=== PATIENT | male | born 1975 | race Caucasian/White ===

== ENCOUNTER 2016-05-04 10:13 | Emergency (ER) | payer SELFPAY ==
[~2016-05-04] VITALS: Ht 182.9 cm; Wt 100.0 kg
[~2016-05-04 10:13] MED LIST: BACT800T5 PO; CEPH-460 PO; METH40TA PO
[2016-05-04 10:15] VITALS: BP 159/87; PULSE 92; RESP 18; TEMP 98.2; O2SAT 97
[2016-05-04 10:26] VITALS: BP 181/94; PULSE 80; RESP 20; TEMP 98.5; O2SAT 99
[2016-05-04] MEDS ORDERED: METH40TA PO (10:26)
[2016-05-04] MEDS ORDERED: METH10TA PO (10:26)
[2016-05-04] MEDS ORDERED: METH5TAB PO (10:26)
[2016-05-04 10:36] VITALS: O2SAT 96
--- NOTE | 2016-05-04 10:37 | PD ---
HPI Chief Complaint: Cardiac Complaint Time Seen by Provider: 10:24 Travel History International Travel<30 days: No Contact w/Intl Traveler<30days: No Traveled to known affect area: No History of Present Illness HPI This patient complains of chest pain. He has intermittent spells for the last one week. Severity symptoms is moderate. He describes an aching sharp pain in the low center sternum. Symptoms are nonexertional. They resolve on their own within 5 minutes. No alleviating factors. PFSH Past Medical History Arthritis: Yes (BACK) Bipolar Disorder: Yes Depression: Yes Cancer: No Cardiac Catheterization: Yes (05/2012 AT [facility] ) Cardiovascular Problems: Yes (cath with no stents) High Cholesterol: Yes Diabetes: No Diminished Hearing: No Diverticulitis: Yes Endocrine: No Gastrointestinal Disorders: Yes (ACID REFLUX, BLEEDING ULCER, GALLSTONES) GERD: Yes Genitourinary: No Headaches: Yes Hypertension: Yes Immune Disorder: No Implanted Vascular Access Dvce: No Musculoskeletal: Yes (BACK L1-2 RUPTURE, BULGING DISC, SCOLIOSIS, 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) Neurologic: Yes Psychiatric: Yes (BIPOLAR) Reproductive: No Respiratory: No Immunizations Current: Yes Migraines: Yes Myocardial Infarction: Yes Renal Failure: Yes Past Surgical History Other Surgery: No Social History Alcohol Use: No Tobacco Use: No Substance Use: No (HX OF PAST USE OF MARIJUANA AND COCAINE IN PAST) Allergies-Medications (Allergen,Severity, Reaction): Coded Allergies: Amlodipine (Verified Allergy, Severe, Swelling, 05/04/16) Naproxen (Verified Allergy, Intermediate, Hives, 05/04/16) Lisinopril (Verified Adverse Reaction, Severe, KIDNEY FAILURE, 05/04/16) kidney failure Toradol (Verified Adverse Reaction, Severe, STOMACH CRAMPS, 05/04/16) Reported Meds & Prescriptions Reported Meds & Active Scripts Active Bactrim DS (Sulfamethoxazole-Trimethoprim) 800-160 Mg Tab 1 Tab PO BID 10 Days Reported Methadone (Methadone HCl) 40 Mg Tab 40 Mg PO DAILY Methadone (Methadone HCl) 10 Mg Tab 30 Mg PO DAILY Methadone (Methadone HCl) 5 Mg Tab 5 Mg PO DAILY Review of Systems General / Constitutional: No: Fever Eyes: No: Visual changes HENT: No: Headaches Cardiovascular: Positive: Chest Pain or Discomfort Respiratory: No: Shortness of Breath Gastrointestinal: No: Abdominal Pain Genitourinary: No: Dysuria Musculoskeletal: No: Pain Skin: No Rash Neurologic: No: Weakness Psychiatric: No: Depression Endocrine: No: Polydipsia Hematologic/Lymphatic: No: Easy Bruising Physical Exam Narrative GENERAL: Well-nourished, well-developed patient in no apparent distress. SKIN: Warm and dry. HEAD: Atraumatic. Normocephalic. EYES: Pupils equal and round. No scleral icterus. No injection or drainage. ENT: No nasal bleeding or discharge. Mucous membranes pink and moist. NECK: Trachea midline. No JVD. CARDIOVASCULAR: Regular rate and rhythm. No murmur appreciated. RESPIRATORY: No accessory muscle use. Clear to auscultation. Breath sounds equal bilaterally. GASTROINTESTINAL: Abdomen soft, non-tender, nondistended. Hepatic and splenic margins not palpable. MUSCULOSKELETAL: No obvious deformities. No clubbing. No cyanosis. No edema. Is readily reproducible chest wall tenderness in the region of the xiphoid process. Whenever I palpate he instantly reoccurs his chest pain. NEUROLOGICAL: Awake and alert. No obvious cranial nerve deficits. Motor grossly within normal limits. Normal speech. PSYCHIATRIC: Appropriate mood and affect; insight and judgment normal. Data Data Last Documented VS Vital Signs Date Time Temp Pulse Resp B/P Pulse Ox O2 Delivery O2 Flow Rate FiO2 05/04/16 11:14 56 18 121/60 94 Room Air 05/04/16 10:26 98.5 Orders Electrocardiogram (05/04/16 ) Basic Metabolic Panel (Bmp) (05/04/16 10:32) Ckmb (Isoenzyme) Profile (05/04/16 10:32) Complete Blood Count With Diff (05/04/16 10:32) Troponin I (05/04/16 10:32) Ecg Monitoring (05/04/16 10:32) Iv Access Insert/Monitor (05/04/16 10:32) Oximetry (05/04/16 10:32) Sodium Chloride 0.9% Flush (Ns Flush) (05/04/16 10:45) Clonidine (Catapres) (05/04/16 10:45) CKMB (05/04/16 10:40) CKMB% (05/04/16 10:40) Labs Laboratory Tests Test 05/04/16 10:40 White Blood Count 13.2 TH/MM3 Red Blood Count 5.22 MIL/MM3 Hemoglobin 15.8 GM/DL Hematocrit 45.6 % Mean Corpuscular Volume 87.4 FL Mean Corpuscular Hemoglobin 30.3 PG Mean Corpuscular Hemoglobin 34.7 % Concent Red Cell Distribution Width 13.5 % Platelet Count 236 TH/MM3 Mean Platelet Volume 8.8 FL Neutrophils (%) (Auto) 47.6 % Lymphocytes (%) (Auto) 42.5 % Monocytes (%) (Auto) 7.7 % Eosinophils (%) (Auto) 1.8 % Basophils (%) (Auto) 0.4 % Neutrophils # (Auto) 6.3 TH/MM3 Lymphocytes # (Auto) 5.6 TH/MM3 Monocytes # (Auto) 1.0 TH/MM3 Eosinophils # (Auto) 0.2 TH/MM3 Basophils # (Auto) 0.0 TH/MM3 CBC Comment AUTO DIFF Sodium Level 139 MEQ/L Potassium Level 4.0 MEQ/L Chloride Level 104 MEQ/L Carbon Dioxide Level 28.1 MEQ/L Anion Gap 7 MEQ/L Blood Urea Nitrogen 17 MG/DL Creatinine 1.01 MG/DL Estimat Glomerular Filtration 82 ML/MIN Rate Random Glucose 101 MG/DL Calcium Level 9.3 MG/DL Total Creatine Kinase 114 U/L Creatine Kinase MB 0.8 NG/ML Troponin I 0.04 NG/ML [facility] Medical Decision Making Medical Screen Exam Complete: Yes Emergency Medical Condition: Yes Medical Record Reviewed: Yes Differential Diagnosis Differential diagnosis includes IA, angina, pericarditis, pleurisy, GERD, anxiety. Narrative Course I have reviewed the patient's electronic medical record. Patient was seen here 2016 for chest pain when he left AMA after 2 negative troponins IV placed I reviewed the EKG which shows sinus rhythm but no ST elevation or ectopy Extended cardiac monitoring shows sinus rhythm without ectopy CBC is normal Metabolic profile is normal CK is normal Troponin is normal I gave him a dose of clonidine for accelerated hypertension of 186/94 Blood pressure is now low at 105 but I believe will gradually worked its way up as this clonidine metabolizes His pain is clearly chest wall in origin and not cardiac and he does not require inpatient evaluation for this pain. He does require outpatient follow-up and I advised him to be diligent about that Recommended he check and record his blood pressure daily Diagnosis Primary Impression: Musculoskeletal chest pain Additional Instructions: The patient was advised to follow up with their physician and return if they worsen. Med/Other Pt SpecificInfo: Other Disposition: 01 DISCHARGE HOME Condition: Stable Rey Stewart MD May 04, 2016 10:37
[2016-05-04] MEDS ORDERED: cloNIDine HCL 0.1 MG TAB PO ONE (10:45)
[2016-05-04] MEDS ORDERED: SODIUM CHLORIDE 0.9% FLUSH 5 ML FLUSH IVF PRN (10:45)
[2016-05-04 11:08] LABS: ANION GAP 7 MEQ/L (5-15); BICARBONATE 28.1 MEQ/L (21.0-32.0); BLOOD UREA NITROGEN 17 MG/DL (7-18); CHLORIDE 104 MEQ/L (98-107); GLOMERULAR FILTRATION RATE 82 ML/MIN (>89); SODIUM (NA) 139 MEQ/L (136-145)
[2016-05-04 11:11] LABS: AUTOMATED NEUTROPHIL # 6.3 TH/MM3 (1.8-7.7); BASOPHIL % 0.4 % (0.0-2.0); CREATINE KINASE 114 U/L (39-308); EOSINOPHIL # 0.2 TH/MM3 (0-0.4); EOSINOPHIL % 1.8 % (0.0-4.0); HEMATOCRIT 45.6 % (39.0-51.0); LYMPH % 42.5 % (9.0-44.0); LYMPHOCYTE # 5.6 TH/MM3 (1.0-4.8); MEAN CELL VOLUME 87.4 FL (80.0-100.0); MEAN CORPUSCULAR HEMOGLOBIN 30.3 PG (27.0-34.0); MEAN CORPUSCULAR HGB CONC 34.7 % (32.0-36.0); MONO % 7.7 % (0.0-8.0); NEUT % 47.6 % (16.0-70.0); PLATELET COUNT 236 TH/MM3 (150-450); RED BLOOD COUNT 5.22 MIL/MM3 (4.50-5.90); RED CELL DISTRIBUTION WIDTH 13.5 % (11.6-17.2); WHITE BLOOD COUNT 13.2 TH/MM3 (4.0-11.0)
[2016-05-04 11:12] LABS: HEMO FLAGS AUTO DIFF
[2016-05-04 11:14] VITALS: BP 121/60; PULSE 56; RESP 18; O2SAT 94
[2016-05-04 11:24] LABS: CKMB 0.8 NG/ML (0.5-3.6)
[2016-05-04 12:13] VITALS: BP 105/58; PULSE 52; RESP 18; O2SAT 94
[2016-05-04 12:33] LABS: BANDS 2 % (0-6); EOSINOPHILS 4 % (0-4); METAMYELOCYTES 1 % (0-1); NEUTROPHIL # MANUAL DIFF 6.3 TH/MM3 (1.8-7.7); PLATELET ESTIMATE SMEAR NORMAL (NORMAL); PLATELET MORPHOLOGY NORMAL (NORMAL); POLYS (SEG NEUTROPHILS) 45 % (16-70); SCAN/DIFF FINAL DIFF MANUAL; WBC DIFF SAMPLE 100
--- NOTE | 2016-05-04 13:25 | EKG ---
Date Performed: 05/04/2016 Time Performed: 10:32:02 PTAGE: 41 years EKG: Sinus rhythm NORMAL ECG PREVIOUS TRACING : 04/20/2015 15.54 No significant change from previous tracing noted. DOCTOR: Ayden Griffin Interpretating Date/Time 05/04/2016 13:24:51
== END 2016-05-04 12:50 | disposition home or self-care (01) ==
LOC: NEPC 10:13
DX: R07.9 Chest pain, unspecified (principal); I10 Essential (primary) hypertension
CPT/HCPCS: 80048; 82550; 82552; 84484; 85007; 85027; 93005

== ENCOUNTER 2016-08-29 18:26 | Observation (INO) | payer SELFPAY ==
[~2016-08-29] VITALS: Ht 182.9 cm; Wt 98.0 kg
[~2016-08-29 18:26] MED LIST changes: -CEPH-460 PO; +METH10TA PO; +METH5TAB PO
[2016-08-29 18:28] VITALS: BP 205/98; PULSE 74; RESP 20; TEMP 98.2; O2SAT 100
[2016-08-29] MEDS ORDERED: METH40TA PO (20:23)
[2016-08-29] MEDS ORDERED: SODIUM CHLOR 0.9% 1000 ML INJ 1,000 ML IV SCH (20:26)
[2016-08-29] MEDS ORDERED: ASPIRIN 81 MG CHEW TAB PO ONE (20:30)
[2016-08-29] MEDS ORDERED: SODIUM CHLORIDE 0.9% FLUSH 10 ML FLUSH IVF PRN (20:30)
[2016-08-29 20:35] VITALS: BP 143/84; PULSE 73; RESP 16; O2SAT 96
[2016-08-29] MEDS: NITROGLYCERIN 0.4 MG SL 25 TABS/BTL SL SCH ×3 (20:35→20:44)
--- NOTE | 2016-08-29 20:39 | PD ---
HPI Chief Complaint: Chest Pain Time Seen by Provider: 20:28 Travel History International Travel<30 days: No Contact w/Intl Traveler<30days: No Traveled to known affect area: No History of Present Illness HPI 41-year-old male with a history of HTN, HLD, chronic back pain presents to the emergency department for evaluation of chest pain. The patient states he has had left anterior chest pain intermittently for the past 4 days. Describes it as a sharp pain. States that he has had this pain several times over the last few years. States he has been told in the past that he has chest wall pain or musculoskeletal pain and been told that if he cannot reproduce it with palpation that he needs to come back to the emergency room. States that this pain is not reproducible on palpation. States that the pain is aggravated with exertion. States he also has intermittent shortness of breath and nausea. States he has some mild suprapubic pain and has noticed he has some dark urine occasionally. He states that he had a heart catheterization in 2011 and was told that he had 2 plaques but no stents were placed. Last stress test 2010. Patient does not currently smoke cigarettes but has a 20 year history of smoking cigarettes. He takes methadone for chronic back pain. Denies a history of IV drug use. Denies alcohol or drug use. No other complaints. PFSH Past Medical History Hx Anticoagulant Therapy: No Arthritis: Yes (BACK) Bipolar Disorder: Yes Depression: Yes Cancer: No Cardiac Catheterization: Yes (05/2012 AT [facility] ) Cardiovascular Problems: Yes (HTN) High Cholesterol: Yes Chemotherapy: No Cerebrovascular Accident: No Diabetes: No Diminished Hearing: No Diverticulitis: Yes Endocrine: No Gastrointestinal Disorders: Yes (ACID REFLUX, BLEEDING ULCER, GALLSTONES) GERD: Yes Genitourinary: No Headaches: Yes Hypertension: Yes Immune Disorder: No Implanted Vascular Access Dvce: No Musculoskeletal: Yes (BACK L1-2 RUPTURE, BULGING DISC, SCOLIOSIS, 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) Neurologic: Yes Psychiatric: Yes (BIPOLAR) Reproductive: No Respiratory: No Immunizations Current: Yes Migraines: Yes Myocardial Infarction: Yes Renal Failure: No Tetanus Vaccination: < 5 Years Influenza Vaccination: No ?: Not Past Surgical History Hysterectomy: No Other Surgery: No Social History Alcohol Use: No Tobacco Use: Yes (dip) Substance Use: Yes (marijuana) Allergies-Medications (Allergen,Severity, Reaction): Coded Allergies: Amlodipine (Verified Allergy, Severe, Swelling, 08/29/16) Naproxen (Verified Allergy, Intermediate, Hives, 08/29/16) Lisinopril (Verified Adverse Reaction, Severe, KIDNEY FAILURE, 08/29/16) kidney failure Toradol (Verified Adverse Reaction, Severe, STOMACH CRAMPS, 08/29/16) Reported Meds & Prescriptions Reported Meds & Active Scripts Active Reported Methadone (Methadone HCl) 40 Mg Tab 90 Mg PO DAILY Review of Systems Except as stated in HPI: all other systems reviewed are Neg Physical Exam Narrative GENERAL: Well-nourished and well-developed pleasant male patient in no acute distress who is nontoxic appearing. SKIN: Warm and dry. HEAD: Normocephalic and atraumatic. EYES: No injection, drainage, or hyphema noted. PERRLA. EOMI. ENT: No nasal drainage noted. Oropharynx is clear. NECK: Supple and the trachea is midline. CARDIOVASCULAR: Regular rate and rhythm. RESPIRATORY: Breath sounds are equal bilaterally with no accessory muscle use, wheezing, rhonchi, or crackles. GASTROINTESTINAL: Abdomen is soft, non-tender, and nondistended. MUSCULOSKELETAL: No obvious deformities, swelling, cyanosis, or ecchymosis is present throughout the upper and lower extremities. Patient has full range of motion without any signs of neurovascular compromise. NEUROLOGICAL: Awake, alert, and oriented. Normal speech and gait. Cranial nerves are grossly intact. Data Data Last Documented VS Vital Signs Date Time Temp Pulse Resp B/P Pulse Ox O2 Delivery O2 Flow Rate FiO2 08/29/16 20:35 73 16 143/84 96 Room Air 08/29/16 18:28 98.2 Orders Electrocardiogram (08/29/16 ) Electrocardiogram (08/29/16 20:26) Ckmb (Isoenzyme) Profile (08/29/16 20:26) Complete Blood Count With Diff (08/29/16 20:26) Comprehensive Metabolic Panel (08/29/16 20:26) Magnesium (Mg) (08/29/16 20:26) Prothrombin Time / Inr (Pt) (08/29/16 20:26) Act Partial Throm Time (Ptt) (08/29/16 20:26) Troponin I (08/29/16 20:26) Lipase (08/29/16 20:26) Chest, Single Ap (08/29/16 20:26) Ecg Monitoring (08/29/16 20:26) Bilateral Bp Monitoring (08/29/16 20:26) Iv Access Insert/Monitor (08/29/16 20:26) Oximetry (08/29/16 20:26) Aspirin Chew (Aspirin Chew) (08/29/16 20:30) Sodium Chloride 0.9% Flush (Ns Flush) (08/29/16 20:30) Nitroglycerin Sl (Nitrostat Sl) (08/29/16 20:30) Urinalysis - C+S If Indicated (08/29/16 20:26) Sodium Chlor 0.9% 1000 Ml Inj (Ns 1000 M (08/29/16 20:26) CKMB (08/29/16 20:35) CKMB% (08/29/16 20:35) Admit Order (Ed Use Only) (08/29/16 22:10) Activity Bed Rest With Brp (08/29/16 22:10) Vital Signs (Adult) Q4H (08/29/16 22:10) Cardiac Rhythm .As Directed (08/29/16 22:10) Notify Dr: Other .PRN (08/29/16 22:10) Notify Parameters (08/29/16 22:10) Resp Oxygen Nasal Cannula (08/29/16 ) Diet Npo (08/30/16 Breakfast) Ckmb (Isoenzyme) Profile (08/29/16 23:35) Ckmb (Isoenzyme) Profile (08/30/16 02:35) Troponin I (08/29/16 23:35) Troponin I (08/30/16 02:35) Electrocardiogram (08/29/16 22:10) Electrocardiogram (08/30/16 01:10) ^ Obtain (08/29/16 22:10) Sodium Chlor 0.9% 1000 Ml Inj (Ns 1000 M (08/29/16 22:10) Sodium Chloride 0.9% Flush (Ns Flush) (08/29/16 22:15) Sodium Chloride 0.9% Flush (Ns Flush) (08/30/16 09:00) Acetaminophen (Tylenol) (08/29/16 22:15) Ondansetron Inj (Zofran Inj) (08/29/16 22:15) Auto Roller / Telemetry CHUCHO.Q8H (08/29/16 22:10) Labs Laboratory Tests Test 08/29/16 08/29/16 20:35 20:40 White Blood Count 11.2 TH/MM3 Red Blood Count 4.98 MIL/MM3 Hemoglobin 15.0 GM/DL Hematocrit 43.3 % Mean Corpuscular Volume 86.9 FL Mean Corpuscular Hemoglobin 30.1 PG Mean Corpuscular Hemoglobin 34.6 % Concent Red Cell Distribution Width 13.5 % Platelet Count 235 TH/MM3 Mean Platelet Volume 8.5 FL Neutrophils (%) (Auto) 47.5 % Lymphocytes (%) (Auto) 40.9 % Monocytes (%) (Auto) 9.3 % Eosinophils (%) (Auto) 1.1 % Basophils (%) (Auto) 1.2 % Neutrophils # (Auto) 5.3 TH/MM3 Lymphocytes # (Auto) 4.6 TH/MM3 Monocytes # (Auto) 1.0 TH/MM3 Eosinophils # (Auto) 0.1 TH/MM3 Basophils # (Auto) 0.1 TH/MM3 CBC Comment DIFF FINAL Differential Comment Prothrombin Time 11.0 SEC Prothromb Time International 1.0 RATIO Ratio Activated Partial 30.1 SEC Thromboplast Time Sodium Level 137 MEQ/L Potassium Level 4.2 MEQ/L Chloride Level 102 MEQ/L Carbon Dioxide Level 24.9 MEQ/L Anion Gap 10 MEQ/L Blood Urea Nitrogen 12 MG/DL Creatinine 0.96 MG/DL Estimat Glomerular Filtration 87 ML/MIN Rate Random Glucose 91 MG/DL Calcium Level 8.9 MG/DL Magnesium Level 2.1 MG/DL Total Bilirubin 0.4 MG/DL Aspartate Amino Transf 40 U/L (AST/SGOT) Alanine Aminotransferase 31 U/L (ALT/SGPT) Alkaline Phosphatase 81 U/L Total Creatine Kinase 154 U/L Creatine Kinase MB 0.7 NG/ML Troponin I 0.04 NG/ML Total Protein 7.8 GM/DL Albumin 4.1 GM/DL Lipase 120 U/L Urine Color YELLOW Urine Turbidity CLEAR Urine pH 5.5 Urine Specific [place] 1.032 Urine Protein 100 mg/dL Urine Glucose (UA) NEG mg/dL Urine Ketones NEG mg/dL Urine Occult Blood NEG Urine Nitrite NEG Urine Bilirubin NEG Urine Urobilinogen LESS THAN 2.0 MG/DL Urine Leukocyte Esterase NEG Urine RBC LESS THAN 1 /hpf Urine WBC 1 /hpf Urine Squamous Epithelial <1 /hpf Cells Urine Mucus MOD /lpf Microscopic Urinalysis Comment CULT NOT INDICATED MDM Medical Decision Making Medical Screen Exam Complete: Yes Emergency Medical Condition: Yes Differential Diagnosis Pleurisy versus chest wall pain versus ACS versus angina Narrative Course 41-year-old male presents to the emergency department for evaluation of chest pain. Patient is afebrile. He is hypertensive with a blood pressure of 205/ 98. Otherwise vital signs within normal limits. He has high blood pressure but has not taken anything for his blood pressure in a long time because he does not have a primary care provider. Physical examination is essentially unremarkable. IV access is obtained, labs have been drawn and sent. Patient is placed on cardiac telemetry and pulse oximetry monitoring. Patient is administered aspirin 324 mg orally and nitroglycerin sublingual tablets. EKG shows sinus rhythm with no acute ST elevations or depressions. CBC shows slightly elevated with multiple 11.2, otherwise unremarkable. CMP is unremarkable. Troponin is 0.04. Appears consistent with previous labs. Coags are unremarkable. Urinalysis shows 100 protein and moderate mucus, otherwise unremarkable. Chest x-ray is unremarkable. Patient has remained stable without complaint while here in the emergency department. Blood pressure is improved to 143/84. Patient will be admitted to chest pain center for repeat cardiac enzymes, EKGs and possible stress testing. Diagnosis Primary Impression: Chest pain Qualified Code: R07.9 - Chest pain, unspecified type Admitting Information Admitting Physician Requests: [place] Ceron Aug 29, 2016 20:39
[2016-08-29 21:08] LABS: AUTOMATED NEUTROPHIL # 5.3 TH/MM3 (1.8-7.7); BASOPHIL # 0.1 TH/MM3 (0-0.2); BASOPHIL % 1.2 % (0.0-2.0); EOSINOPHIL # 0.1 TH/MM3 (0-0.4); EOSINOPHIL % 1.1 % (0.0-4.0); HEMATOCRIT 43.3 % (39.0-51.0); HEMO FLAGS DIFF FINAL; LYMPH % 40.9 % (9.0-44.0); LYMPHOCYTE # 4.6 TH/MM3 (1.0-4.8); MEAN CELL VOLUME 86.9 FL (80.0-100.0); MEAN CORPUSCULAR HEMOGLOBIN 30.1 PG (27.0-34.0); MEAN CORPUSCULAR HGB CONC 34.6 % (32.0-36.0); MONO % 9.3 % (0.0-8.0); NEUT % 47.5 % (16.0-70.0); PLATELET COUNT 235 TH/MM3 (150-450); RED BLOOD COUNT 4.98 MIL/MM3 (4.50-5.90); RED CELL DISTRIBUTION WIDTH 13.5 % (11.6-17.2); WHITE BLOOD COUNT 11.2 TH/MM3 (4.0-11.0)
[2016-08-29 21:16] LABS: APTT (PATIENT) 30.1 SEC (24.3-30.1)
--- NOTE | 2016-08-29 21:17 | RADRPT ---
EXAM DATE/TIME: 08/29/2016 20:57 [facility] COMPARISON: CHEST SINGLE AP, April 20, 2015, 12:58. INDICATIONS : Chest pain for 3 days. MEDICAL HISTORY : Hypertension. Coronary artery disease. SURGICAL HISTORY : None. ENCOUNTER: Initial ACUITY: 3 days PAIN SCORE: 5/10 LOCATION: Bilateral chest FINDINGS: 2 frontal views of the chest demonstrate the lungs to be symmetrically aerated without evidence of ma ss, infiltrate or effusion. The cardiomediastinal contours are unremarkable. Osseous structures are intact. CONCLUSION: Normal examination. Vasiliy Bautista Jr., MD on August 29, 2016 at 21:14 Board Certified Radiologist. This report was verified electronically.
[2016-08-29 21:21] LABS: BLOOD, URINE NEG (NEG); COMMENT (UR) CULT NOT INDICATED; CULTURE IF INDICATED CULT NOT INDICATED; GLUCOSE,URINE NEG (NEG); KETONE, URINE NEG (NEG); MUCUS URINE MOD /lpf (OCC); NITRITE,URINE NEG (NEG); PH, URINE 5.5 (5.0-8.5); SQUAMOUS EPITHELIAL CELL URINE <1 /hpf (0-5); URINE COLOR YELLOW (YELLW/STRAW)
[2016-08-29 21:31] LABS: ALT (GPT) 31 U/L (12-78)
[2016-08-29 21:34] LABS: ANION GAP 10 MEQ/L (5-15); AST (GOT) 40 U/L (15-37); BICARBONATE 24.9 MEQ/L (21.0-32.0); BLOOD UREA NITROGEN 12 MG/DL (7-18); CHLORIDE 102 MEQ/L (98-107); GLOMERULAR FILTRATION RATE 87 ML/MIN (>89); MAGNESIUM 2.1 MG/DL (1.5-2.5); POTASSIUM 4.2 MEQ/L (3.5-5.1); SODIUM (NA) 137 MEQ/L (136-145)
[2016-08-29 21:50] LABS: ALKALINE PHOSPHATASE 81 U/L (45-117); CREATINE KINASE 154 U/L (39-308)
[2016-08-29 21:51] LABS: TOTAL BILIRUBIN ADULT 0.4 MG/DL (0.2-1.0)
[2016-08-29 22:04] LABS: CKMB 0.7 NG/ML (0.5-3.6)
[2016-08-29] MEDS ORDERED: ACETAMINOPHEN 500 MG CPLT PO PRN (22:15)
[2016-08-29] MEDS ORDERED: ONDANSETRON HCL 4 MG/2 ML VIAL IV PRN (22:15)
[2016-08-29] MEDS ORDERED: SODIUM CHLORIDE 0.9% FLUSH 10 ML FLUSH IV FLUSH PRN (22:15)
[2016-08-29 23:50] LABS: CREATINE KINASE 101 U/L (39-308)
[2016-08-30] VITALS (9 sets, daily range): BP systolic 118–140; BP diastolic 60–80; PULSE 50–67; RESP 16–20; TEMP 97.8–98.7; O2SAT 95–100
[2016-08-30] MEDS: SODIUM CHLOR 0.9% 1000 ML INJ 1,000 ML IV SCH ×2 (00:30→09:28)
[2016-08-30] MEDS ORDERED: SODIUM CHLORIDE 0.9% FLUSH 10 ML FLUSH IV FLUSH SCH (09:00)
[2016-08-30] MEDS ORDERED: cloNIDine HCL 0.1 MG TAB PO PRN (09:15)
[2016-08-30] MEDS ORDERED: ALPRAZolam 0.5 MG TAB PO ONE (09:15)
[2016-08-30] MEDS ORDERED: HYDROmorphone HCL PF 1 MG/ML VIAL IV PUSH PRN (09:15)
[2016-08-30] MEDS ORDERED: REGADENOSON INJ 0.4 MG/5 ML SYR ONE (10:21)
--- NOTE | 2016-08-30 11:39 | HHI.HP ---
HPI Primary Care Physician No Primary Care Physician Chief Complaint Chest pain History of Present Illness This is a 41-year-old male that presents to the ED with history chronic back pain hypertension and hyperlipidemia with a complaint of chest discomfort. He states that he has had 3 days of intermittent central chest discomfort that he describes as a burning/stabbing sensation. It last about a minute have. However his reoccurred several times. He has no associated shortness breath, nausea, or diaphoresis. He denies recent illness. Denies fevers or chills. States his last stress test was about 6 years ago and he believes it was okay. States that he had a cardiac catheterization in 2013 and they have blockages, states no stents were placed. Does not follow with primary care physician or fairing man. He has not taken his blood pressure medicine or statin therapy for 3 years stating he has no money and no insurance. Review of Systems General: Patient denies fevers, chills recent, and recent travel HEENT: Patient denies headache, sore throat, difficulty swallowing. Cardiovascular: Has the chest discomfort as mentioned above. Denies sensation of heart beating rapidly or irregularly. No syncope. Denies diaphoresis. Respiratory: Denies shortness of breath or inspirational chest discomfort. Denies coughing wheezing or hemoptysis. GI: Patient denies nausea, vomiting, diarrhea, abdominal pain, bloody stools. Musculoskeletal: Patient was a chronic back pain. Patient denies joint pain or edema. Denies calf pain or edema. Neurovascular: Patient denies numbness, tingling, weakness in extremities. Denies headache. Endocrine: Denies polyuria and polydipsia. Hematologic: Denies easy bruising. Skin: Denies rash or itching. Past Family Social History Allergies: Coded Allergies: Amlodipine (Verified Allergy, Severe, Swelling, 08/29/16) Naproxen (Verified Allergy, Intermediate, Hives, 08/29/16) Lisinopril (Verified Adverse Reaction, Severe, KIDNEY FAILURE, 08/29/16) kidney failure Toradol (Verified Adverse Reaction, Severe, STOMACH CRAMPS, 08/29/16) Past Medical History Hypertension however no medication in 3 years. Hyperlipidemia but also no medication 3 years. Chronic back pain which he takes methadone for. Denies diabetes. He believes he was told he has coronary artery disease. Past Surgical History Cardiac catheterization without intervention. Reported Medications Reported Meds & Active Scripts Active Reported Methadone (Methadone HCl) 40 Mg Tab 90 Mg PO DAILY Active Ordered Medications Current Medications Medications (Trade) Dose Ordered Sig/Seema Route Start Time Stop Time Status Last Admin Sodium Chloride 2 ml 2 ml UNSCH PRN IVF 08/29/16 20:30 08/29/16 20:45 (NS 1000 ml Inj) 1,000 ml @ 100 mls/hr Q10H IV 08/29/16 22:10 08/30/16 09:28 (NS Flush) 2 ml UNSCH PRN IV FLUSH 08/29/16 22:15 (NS Flush) 2 ml BID IV FLUSH 08/30/16 09:00 (Tylenol) 500 mg Q4H PRN PO 08/29/16 22:15 (Zofran Inj) 4 mg Q6H PRN IV 08/29/16 22:15 08/30/16 09:22 (Dilaudid Pf Inj) 0.5 mg Q4H PRN IV PUSH 08/30/16 09:15 08/30/16 09:28 (Catapres) 0.1 mg Q4H PRN PO 08/30/16 09:15 Family History Denies family history of CAD. Social History Patient quit smoking about 12 years ago. Smokes marijuana a few times a day. Denies alcohol. Physical Exam Vital Signs Vital Signs Date Time Temp Pulse Resp B/P Pulse Ox O2 Delivery O2 Flow Rate FiO2 08/30/16 09:15 58 08/30/16 08:33 98.2 67 20 118/60 96 08/30/16 06:13 100 08/30/16 04:00 50 08/30/16 03:08 98.1 50 18 136/75 100 08/30/16 01:04 55 08/30/16 00:11 98.7 51 16 135/80 98 08/30/16 00:00 70 16 132/72 98 08/29/16 20:35 73 16 143/84 96 Room Air 08/29/16 18:28 98.2 74 20 205/98 100 Room Air Physical Exam GENERAL: This is a well-nourished, well-developed patient, in no apparent distress. Patient speaks in clear complete sentences. Patient is pleasant. HEENT: Head is atraumatic and normocephalic. Neck is supple without lymphadenopathy and trachea is midline. No JVD or carotid bruits. CARDIOVASCULAR: Regular rate and rhythm without murmurs, gallops, or rubs. RESPIRATORY: Clear to auscultation. Breath sounds equal bilaterally. No wheezes , rales, or rhonchi. Chest wall is nontender. No use of accessory muscles. GASTROINTESTINAL: Abdomen is nontender, nondistended. Abdomen soft. No obvious pulsatile mass or bruit. No CVA tenderness. Strong femoral pulses bilaterally. Normal bowel sounds in all quadrants. MUSCULOSKELETAL: Patient is moving upper and lower extremities freely. No calf tenderness or edema, no Homans sign. Strong pulses in upper and lower extremities. There is discomfort with movement of his back which is chronic. There is no spinous processes point tenderness on palpating cervical, thoracic, or lumbar spine. NEUROLOGICAL: Patient is alert and oriented. Cranial nerves 2-12 are grossly intact. No focal deficits and speech is clear. SKIN: No rash and turgor is normal. Laboratory Laboratory Tests Test 08/29/16 08/29/16 08/29/16 08/30/16 20:35 20:40 23:00 02:05 White Blood Count 11.2 Red Blood Count 4.98 Hemoglobin 15.0 Hematocrit 43.3 Mean Corpuscular Volume 86.9 Mean Corpuscular Hemoglobin 30.1 Mean Corpuscular Hemoglobin 34.6 Concent Red Cell Distribution Width 13.5 Platelet Count 235 Mean Platelet Volume 8.5 Neutrophils (%) (Auto) 47.5 Lymphocytes (%) (Auto) 40.9 Monocytes (%) (Auto) 9.3 Eosinophils (%) (Auto) 1.1 Basophils (%) (Auto) 1.2 Neutrophils # (Auto) 5.3 Lymphocytes # (Auto) 4.6 Monocytes # (Auto) 1.0 Eosinophils # (Auto) 0.1 Basophils # (Auto) 0.1 CBC Comment DIFF FINAL Differential Comment Prothrombin Time 11.0 Prothromb Time International 1.0 Ratio Activated Partial 30.1 Thromboplast Time Sodium Level 137 Potassium Level 4.2 Chloride Level 102 Carbon Dioxide Level 24.9 Anion Gap 10 Blood Urea Nitrogen 12 Creatinine 0.96 Estimat Glomerular Filtration 87 Rate Random Glucose 91 Calcium Level 8.9 Magnesium Level 2.1 Total Bilirubin 0.4 Aspartate Amino Transf 40 (AST/SGOT) Alanine Aminotransferase 31 (ALT/SGPT) Alkaline Phosphatase 81 Total Creatine Kinase 154 101 83 Creatine Kinase MB 0.7 1.0 Troponin I 0.04 0.05 0.05 Total Protein 7.8 Albumin 4.1 Lipase 120 Urine Color YELLOW Urine Turbidity CLEAR Urine pH 5.5 Urine Specific [place] 1.032 Urine Protein 100 Urine Glucose (UA) NEG Urine Ketones NEG Urine Occult Blood NEG Urine Nitrite NEG Urine Bilirubin NEG Urine Urobilinogen LESS THAN 2.0 Urine Leukocyte Esterase NEG Urine RBC LESS THAN 1 Urine WBC 1 Urine Squamous Epithelial <1 Cells Urine Mucus MOD Microscopic Urinalysis Comment CULT NOT INDICATED Result Diagram: 08/29/16203408/29/162034 Imaging Last 48 hours Impressions Chest X-Ray 08/29/162025 Signed Impressions: Service Date/Time: Monday, August 29, 2016 20:57 - CONCLUSION: Normal examination. Vasiliy Bautista Jr., MD Course EKGs have sinus rhythm without significant ST segment depressions or elevations. Assessment and Plan Assessment and Plan * Chest pain: Patient has had serial cardiac enzymes and EKGs for ruling out purposes. He will be seen by Dr. Tamez in the chest pain center. He will undergo a Lexiscan. He'll be discharged home if the stress test is nonischemic with instructions to follow-up with thymic care physician. * Hypertension: Likely start beta vladimir. * Hyperlipidemia: Patient states he has history of hyperlipidemia but does not medication. We'll discuss starting statin therapy however he will need to have close follow-up of his LFTs. AST is mildly elevated at this time. * Chronic back pain: He should continue his treatment through the methadone clinic. Patient is stable at this time. He is agreeable to this plan. Les Norton Aug 30, 2016 11:39
--- NOTE | 2016-08-30 11:50 | RADRPT ---
EXAM DATE/TIME: 08/30/2016 09:55 [facility] COMPARISON: No previous studies available for comparison. INDICATIONS : Left sided chest pain for 4 days. Angina. Myocardial infarction. DOSE: 25.9 mCi Tc99m Myoview at stress. 8.1 mCi Tc99m Myoview at rest. 0.4 mg Lexiscan STRESS SYMPTOMS: Midchest pain and neck tightness. EJECTION FRACTION: 55% MEDICAL HISTORY : Hypercholesterolemia. Hypertension. SURGICAL HISTORY : Back surgery. ENCOUNTER: Initial ACUITY: 4 - 6 days PAIN SCALE: 4/10 LOCATION: Left chest TECHNIQUE: The patient underwent pharmacologic stress with infusion of prescribed dose. Continuous ECG tracing was monitored during stress. Gated SPECT imaging was performed after stress and conventional SPECT i maging was performed at rest. The examination was performed on a SPECT/CT scanner, both attenuation and non-corrected datasets were reviewed. FINDINGS: DISTRIBUTION: The maximum perfused segment at stress is in the anterolateral wall. PERFUSION STUDY: The pattern of perfusion at stress is within normal limits. GATED STUDY: There is intact wall motion and thickening without hypokinetic or dyskinetic segments. CONCLUSION: 1. No reversible perfusion defect to indicate stress-induced myocardial ischemia identified. RISK CATEGORY: Low (<1% Annual Mortality Rate) Moiz Lynch MD on August 30, 2016 at 11:45 Board Certified Radiologist. This report was verified electronically.
--- NOTE | 2016-08-30 12:34 | EKG ---
Date Performed: 08/29/2016 Time Performed: 18:40:49 PTAGE: 41 years EKG: Sinus rhythm NORMAL ECG PREVIOUS TRACING : 05/04/2016 10.32 DOCTOR: Rasta Tamez Interpretating Date/Time 08/30/2016 12:33:27
--- NOTE | 2016-08-30 12:42 | EKG ---
Date Performed: 08/29/2016 Time Performed: 23:16:28 PTAGE: 41 years EKG: SINUS BRADYCARDIA WITH SINUS ARRHYTHMIA MODERATE INTRAVENTRICULAR CONDUCTION DELAY BORDERLI NE ECG PREVIOUS TRACING : 08/29/2016 18.40 DOCTOR: Rasta Tamez Interpretating Date/Time 08/30/2016 12:42:12
--- NOTE | 2016-08-30 12:48 | EKG ---
Date Performed: 08/30/2016 Time Performed: 02:12:06 PTAGE: 41 years EKG: SINUS BRADYCARDIA NORMAL ECG OTHER THAN RATE PREVIOUS TRACING : 08/29/2016 23.16 DOCTOR: Rasta Tamez Interpretating Date/Time 08/30/2016 12:47:56
--- NOTE | 2016-08-30 12:56 | TR ---
Date Performed: 08/30/2016 Time Performed: 10:36:31 DOCTOR: Rasta Tamez DRUG LIST: CLINICAL HISTORY: CHEST PAIN REASON FOR TEST: REASON FOR ENDING: OBSERVATION: CONCLUSION: Lexiscan stress test was performed under standard four minute protocol. Radionuclide was injected one minute prior to ending the test. The patient was asymptomatic. No electrocardiograp hic abnormalities were present to suggest ischemia. Recovery was quick and uneventful. Nuclear imagin g and interpretation are pending. COMMENTS:
[2016-08-30] MEDS ORDERED: METO50TA PO (15:19)
[2016-08-30] MEDS ORDERED: ZANT150T2 PO (15:19)
[2016-08-30] MEDS ORDERED: ASPI81CH CHEW (15:19)
--- NOTE | 2016-08-30 15:27 | HHI.DCPOC ---
Discharge Care Plan Diagnosis: (1) Chest pain (2) Hypertension (3) Hyperlipidemia (4) Chronic back pain (5) GERD Goals to Promote Your Health NEED TO DISCUSS TAKING CHOLESTEROL MEDICATIONS WITH PRIMARY CARE DOCTOR. * To prevent worsening of your condition and complications * To maintain your health at the optimal level Directions to Meet Your Goals Take your medications as prescribed Follow your dietary instruction Follow activity as directed Keep your appointments as scheduled Take your immunizations and boosters as scheduled If your symptoms worsen call your PCP, if no PCP go to Urgent Care Center or Emergency Room Smoking is Dangerous to Your Health. Avoid second hand smoke Call the 24-hour hour crisis hotline for domestic abuse at Les Norton Aug 30, 2016 15:27
[2016-08-30] MEDS ORDERED: FAMOTIDINE 20 MG TAB PO ONE (15:30)
== END 2016-08-30 16:19 | disposition home or self-care (01) ==
LOC: NEPE 18:26 → NEDA 22:13 → NEPGCP 08-30 00:01
PROVIDERS: ADMIT Internal Medicine Interventional Cardiology; ATTEND Internal Medicine Interventional Cardiology
DX: R07.9 Chest pain, unspecified (principal); I10 Essential (primary) hypertension; G89.29 Other chronic pain; M54.9 Dorsalgia, unspecified; K21.9 Gastro-esophageal reflux disease without esophagitis; E78.5 Hyperlipidemia, unspecified; I25.2 Old myocardial infarction; R06.02 Shortness of breath; R11.0 Nausea; Z87.891 Personal history of nicotine dependence; M19.90 Unspecified osteoarthritis, unspecified site; E78.00 Pure hypercholesterolemia, unspecified; K57.92 Diverticulitis of intestine, part unspecified, without perforation or abscess without bleeding; G43.909 Migraine, unspecified, not intractable, without status migrainosus
CPT/HCPCS: 71010; 78452; 80053; 81001; 82550; 82552; 83690; 83735; 84484; 85025; 85610; 85730; 93005; 93017; 96360; 99285; A9502; G0378; J1170; J2405; J2785; J7030

== ENCOUNTER 2016-09-16 15:52 | Emergency (ER) | payer SELFPAY ==
[~2016-09-16] VITALS: Ht 182.9 cm; Wt 94.0 kg
[~2016-09-16 15:52] MED LIST changes: +ASPI81CH CHEW; -BACT800T5 PO; -METH10TA PO; -METH5TAB PO; +METO50TA PO; +ZANT150T2 PO
[2016-09-16 15:55] VITALS: BP 192/100; PULSE 117; RESP 20; TEMP 99.3; O2SAT 100
--- NOTE | 2016-09-16 16:09 | PD ---
Physical Exam Time Seen by Provider: 16:09 Narrative 41 y/o male with 2 weeks of nausea, RUQ abdominal pain. Vital signs reviewed. Seen at triage desk. Awaiting bed placement. Data Data Last Documented VS Vital Signs Date Time Temp Pulse Resp B/P Pulse Ox O2 Delivery O2 Flow Rate FiO2 09/16/16 15:55 99.3 117 20 192/100 100 Orders Complete Blood Count With Diff (09/16/16 16:10) Comprehensive Metabolic Panel (09/16/16 16:10) Lipase (09/16/16 16:10) Urinalysis - C+S If Indicated (09/16/16 16:10) MDM Medical Record Reviewed: Yes Supervised Visit with RUDDY: No Jamel Harrington Sep 16, 2016 16:09
[2016-09-16] MEDS ORDERED: SODIUM CHLOR 0.9% 1000 ML INJ 1,000 ML IV SCH (16:48)
--- NOTE | 2016-09-16 16:58 | PD ---
HPI Chief Complaint: Abdominal Pain Time Seen by Provider: 16:48 Travel History International Travel<30 days: No Contact w/Intl Traveler<30days: No Traveled to known affect area: No History of Present Illness HPI 32-year-old male with history of hypertension, presents to the ER today because of several weeks' history of worsening right upper quadrant abdominal pain which she currently measures and 8 out of 10. He has been nauseous and vomiting intermittently. He states that he had been told in the past that he had gallbladder sludging. He denies any fevers, diarrhea, or other symptoms. Modifying Factors: None Associated Signs & Symptoms: Right upper quadrant abdominal pain, nausea and vomiting Risk Factors: None PFSH Past Medical History Hx Anticoagulant Therapy: No Arthritis: Yes (BACK) Bipolar Disorder: Yes Depression: Yes Heart Rhythm Problems: No Cancer: No Cardiac Catheterization: Yes Cardiovascular Problems: Yes High Cholesterol: Yes Chemotherapy: No Congestive Heart Failure: No Cerebrovascular Accident: No Diabetes: No Diminished Hearing: No Diverticulitis: Yes Endocrine: No Gastrointestinal Disorders: Yes (ACID REFLUX, BLEEDING ULCER, GALLSTONES) GERD: Yes Genitourinary: No Headaches: Yes Hypertension: Yes Immune Disorder: No Implanted Vascular Access Dvce: No Musculoskeletal: Yes (BACK L1-2 RUPTURE, BULGING DISC, SCOLIOSIS, 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) Neurologic: Yes Psychiatric: Yes (BIPOLAR) Reproductive: No Respiratory: No Immunizations Current: Yes Migraines: Yes Myocardial Infarction: Yes Renal Failure: No Past Surgical History Coronary Artery Bypass Graft: No Hysterectomy: No Other Surgery: No Social History Alcohol Use: No Tobacco Use: Yes (dip) Substance Use: Yes (marijuana) Allergies-Medications (Allergen,Severity, Reaction): Coded Allergies: Amlodipine (Verified Allergy, Severe, Swelling, 09/16/16) Naproxen (Verified Allergy, Intermediate, Hives, 09/16/16) Lisinopril (Verified Adverse Reaction, Severe, KIDNEY FAILURE, 09/16/16) kidney failure Toradol (Verified Adverse Reaction, Severe, STOMACH CRAMPS, 09/16/16) Reported Meds & Prescriptions Reported Meds & Active Scripts Active Aspirin 81 Mg Chew 81 Mg CHEW DAILY Zantac (Ranitidine HCl) 150 Mg Tab 150 Mg PO BID Metoprolol Tartrate 50 Mg Tab 25 Mg PO BID Reported Methadone (Methadone HCl) 40 Mg Tab 90 Mg PO DAILY Review of Systems Except as stated in HPI: all other systems reviewed are Neg Physical Exam Narrative GENERAL: Young white male patient currently in moderate distress. Awake and oriented 3. SKIN: Focused skin assessment warm/profusely diaphoretic. HEAD: Atraumatic. Normocephalic. EYES: Pupils equal and round. No scleral icterus. No injection or drainage. ENT: No nasal bleeding or discharge. Mucous membranes pink and moist. NECK: Trachea midline. No JVD. CARDIOVASCULAR: Regular rate and rhythm. No murmur appreciated. RESPIRATORY: No accessory muscle use. Clear to auscultation. Breath sounds equal bilaterally. GASTROINTESTINAL: Abdomen soft, right upper quadrant tenderness without guarding or rebound, nondistended. Hepatic and splenic margins not palpable. MUSCULOSKELETAL: No obvious deformities. No clubbing. No cyanosis. No edema. NEUROLOGICAL: Awake and alert. No obvious cranial nerve deficits. Motor grossly within normal limits. Normal speech. PSYCHIATRIC: Appropriate mood and affect; insight and judgment normal. Data Data Last Documented VS Vital Signs Date Time Temp Pulse Resp B/P Pulse Ox O2 Delivery O2 Flow Rate FiO2 09/16/16 17:26 74 18 130/80 99 09/16/16 15:55 99.3 Orders Complete Blood Count With Diff (09/16/16 16:10) Comprehensive Metabolic Panel (09/16/16 16:10) Lipase (09/16/16 16:10) Urinalysis - C+S If Indicated (09/16/16 16:10) Act Partial Throm Time (Ptt) (09/16/16 16:10) Prothrombin Time / Inr (Pt) (09/16/16 16:10) Lipase (09/16/16 16:48) Us Abdomen Gallbladder (09/16/16 ) Iv Access Insert/Monitor (09/16/16 16:48) Ecg Monitoring (09/16/16 16:48) Oximetry (09/16/16 16:48) Ondansetron Inj (Zofran Inj) (09/16/16 17:00) Sodium Chlor 0.9% 1000 Ml Inj (Ns 1000 M (09/16/16 16:48) Sodium Chloride 0.9% Flush (Ns Flush) (09/16/16 17:00) Electrocardiogram (09/16/16 16:48) Hydromorphone Pf Inj (Dilaudid Pf Inj) (09/16/16 17:00) Labs Laboratory Tests Test 09/16/16 09/16/16 16:30 16:35 Urine Color YELLOW Urine Turbidity CLEAR Urine pH 6.0 Urine Specific [place] 1.033 Urine Protein 300 mg/dL Urine Glucose (UA) NEG mg/dL Urine Ketones NEG mg/dL Urine Occult Blood SMALL Urine Nitrite NEG Urine Bilirubin NEG Urine Urobilinogen LESS THAN 2.0 MG/DL Urine Leukocyte Esterase NEG Urine RBC 5 /hpf Urine WBC 3 /hpf Urine Squamous Epithelial <1 /hpf Cells Urine Calcium Oxalate Crystals RARE /hpf Urine Amorphous Sediment RARE Urine Hyaline Casts 4 /lpf Urine Mucus MOD /lpf Urine Sperm RARE Microscopic Urinalysis Comment CULT NOT INDICATED White Blood Count 9.7 TH/MM3 Red Blood Count 5.37 MIL/MM3 Hemoglobin 15.9 GM/DL Hematocrit 47.2 % Mean Corpuscular Volume 87.9 FL Mean Corpuscular Hemoglobin 29.7 PG Mean Corpuscular Hemoglobin 33.7 % Concent Red Cell Distribution Width 13.3 % Platelet Count 188 TH/MM3 Mean Platelet Volume 8.6 FL Neutrophils (%) (Auto) 59.3 % Lymphocytes (%) (Auto) 29.6 % Monocytes (%) (Auto) 9.5 % Eosinophils (%) (Auto) 1.1 % Basophils (%) (Auto) 0.5 % Neutrophils # (Auto) 5.7 TH/MM3 Lymphocytes # (Auto) 2.9 TH/MM3 Monocytes # (Auto) 0.9 TH/MM3 Eosinophils # (Auto) 0.1 TH/MM3 Basophils # (Auto) 0.1 TH/MM3 CBC Comment DIFF FINAL Differential Comment Prothrombin Time 10.7 SEC Prothromb Time International 1.0 RATIO Ratio Activated Partial 28.0 SEC Thromboplast Time Sodium Level 137 MEQ/L Potassium Level 3.2 MEQ/L Chloride Level 103 MEQ/L Carbon Dioxide Level 23.9 MEQ/L Anion Gap 10 MEQ/L Blood Urea Nitrogen 11 MG/DL Creatinine 1.04 MG/DL Estimat Glomerular Filtration 80 ML/MIN Rate Random Glucose 164 MG/DL Calcium Level 9.6 MG/DL Total Bilirubin 0.3 MG/DL Aspartate Amino Transf 19 U/L (AST/SGOT) Alanine Aminotransferase 26 U/L (ALT/SGPT) Alkaline Phosphatase 84 U/L Total Protein 7.7 GM/DL Albumin 4.0 GM/DL Lipase 127 U/L MDM Medical Decision Making Medical Screen Exam Complete: Yes Emergency Medical Condition: Yes Medical Record Reviewed: Yes Interpretation(s) Laboratory Tests Test 09/16/16 16:35 Monocytes (%) (Auto) 9.5 % (0.0-8.0) Potassium Level 3.2 MEQ/L (3.5-5.1) Estimat Glomerular Filtration 80 ML/MIN (>89) Rate Random Glucose 164 MG/DL (74-106) Last 24 hours Impressions Gall Bladder Ultrasound 09/16/16 0000 Signed Impressions: Service Date/Time: Friday, September 16, 2016 16:51 - CONCLUSION: Positive sonographic Pereira sign. Distended gallbladder. No definite stones or other focal abnormalities identified, however Dean Thrasher MD Differential Diagnosis Right upper quadrant abdominal pains with nausea and vomitingcholecystitis versus hepatitis versus gastroenteritis versus opiate withdrawal Narrative Course Ultrasound did not show any signs of acute cholecystitis but does show a tenderness over the gallbladder. At this point, lab work is otherwise unremarkable. I have briefly discussed the case with Dr. Clark who agrees that there is really no acute emergency for surgical treatment at this point. Patient is fairly frustrated with this issue, states that it has kept him out work for 3 weeks, and states that he wants to get his gallbladder taken out. However, considering there is no signs of acute cholecystitis, I talked him regarding this fact and he will need to follow-up as an outpatient. Return for any worsening in symptoms as needed. The plan has discussed with him and he states understanding. Patient states he already has methadone at home for pain and nausea medication and states he does not need any further medications. Diagnosis Primary Impression: Abdominal pain Disposition: 01 DISCHARGE HOME Condition: Stable Jan Aguero MD Sep 16, 2016 16:58
[2016-09-16] MEDS ORDERED: HYDROmorphone HCL PF 1 MG/ML VIAL IVS ONE (17:00)
[2016-09-16] MEDS ORDERED: ONDANSETRON HCL 4 MG/2 ML VIAL IVP ONE (17:00)
[2016-09-16] MEDS ORDERED: SODIUM CHLORIDE 0.9% FLUSH 10 ML FLUSH IV FLUSH PRN (17:00)
[2016-09-16 17:18] LABS: AUTOMATED NEUTROPHIL # 5.7 TH/MM3 (1.8-7.7); BASOPHIL # 0.1 TH/MM3 (0-0.2); BASOPHIL % 0.5 % (0.0-2.0); EOSINOPHIL # 0.1 TH/MM3 (0-0.4); EOSINOPHIL % 1.1 % (0.0-4.0); HEMATOCRIT 47.2 % (39.0-51.0); HEMO FLAGS DIFF FINAL; LYMPH % 29.6 % (9.0-44.0); LYMPHOCYTE # 2.9 TH/MM3 (1.0-4.8); MEAN CELL VOLUME 87.9 FL (80.0-100.0); MEAN CORPUSCULAR HEMOGLOBIN 29.7 PG (27.0-34.0); MEAN CORPUSCULAR HGB CONC 33.7 % (32.0-36.0); MONO % 9.5 % (0.0-8.0); NEUT % 59.3 % (16.0-70.0); PLATELET COUNT 188 TH/MM3 (150-450); RED BLOOD COUNT 5.37 MIL/MM3 (4.50-5.90); RED CELL DISTRIBUTION WIDTH 13.3 % (11.6-17.2); WHITE BLOOD COUNT 9.7 TH/MM3 (4.0-11.0)
[2016-09-16 17:26] VITALS: BP 130/80; PULSE 74; RESP 18; O2SAT 99
--- NOTE | 2016-09-16 17:27 | RADRPT ---
EXAM DATE/TIME: 09/16/2016 16:51 [facility] COMPARISON: No previous studies available for comparison. INDICATIONS : Right upper quadrant pain, nausea and vomiting. MEDICAL HISTORY : Myocardial infarction. Hypertension. Hypercholesterolemia. GERD. SURGICAL HISTORY : Cardiac catheterization. ENCOUNTER: Initial ACUITY: 2 weeks PAIN SCORE: 8/10 LOCATION: Right upper quadrant MEASUREMENTS: LIVER: 16.4 cm length COMMON DUCT: 3 mm RIGHT KIDNEY: 10.3 x 5.0 x 5.5 cm FINDINGS: LIVER: Normal echotexture without focal lesion or ductal dilatation. COMMON DUCT: No intraluminal mass or stone visualized. GALLBLADDER: Distended without definite stones. No pericholecystic fluid or wall thickening. The patient was tende r to scanning over the gallbladder. PANCREAS: The visualized portions are within normal limits. RIGHT KIDNEY: No evidence of hydronephrosis, stone, or mass. CONCLUSION: Positive sonographic Pereira sign. Distended gallbladder. No definite stones or other focal abnormalit ies identified, however Dean Thrasher MD on September 16, 2016 at 17:23 Board Certified Radiologist. This report was verified electronically.
[2016-09-16 17:33] LABS: ANION GAP 10 MEQ/L (5-15); AST (GOT) 19 U/L (15-37); BICARBONATE 23.9 MEQ/L (21.0-32.0); BLOOD UREA NITROGEN 11 MG/DL (7-18); CHLORIDE 103 MEQ/L (98-107); GLOMERULAR FILTRATION RATE 80 ML/MIN (>89); POTASSIUM 3.2 MEQ/L (3.5-5.1); PROTHROMBIN TIME - PATIENT 10.7 SEC (9.8-11.6); SODIUM (NA) 137 MEQ/L (136-145)
[2016-09-16 17:34] LABS: ALT (GPT) 26 U/L (12-78)
[2016-09-16 17:36] LABS: ALKALINE PHOSPHATASE 84 U/L (45-117); TOTAL BILIRUBIN ADULT 0.3 MG/DL (0.2-1.0)
[2016-09-16 17:55] LABS: BLOOD, URINE SMALL (NEG); CALCIUM OXALATE CRYSTALS,URINE RARE /hpf; COMMENT (UR) CULT NOT INDICATED; CULTURE IF INDICATED CULT NOT INDICATED; GLUCOSE,URINE NEG (NEG); HYALINE CAST, URINE 4 /lpf (RARE); KETONE, URINE NEG (NEG); MUCUS URINE MOD /lpf (OCC); NITRITE,URINE NEG (NEG); SQUAMOUS EPITHELIAL CELL URINE <1 /hpf (0-5); URINE COLOR YELLOW (YELLW/STRAW)
[2016-09-16 18:36] VITALS: BP 171/86
--- NOTE | 2016-09-16 21:45 | EKG ---
Date Performed: 09/16/2016 Time Performed: 17:19:37 PTAGE: 41 years EKG: Sinus rhythm MODERATE INTRAVENTRICULAR CONDUCTION DELAY BORDERLINE ECG PREVIOUS TRACING : 08/30/2016 02.12 Compared to the previous tracing rate faster DOCTOR: Sammie Diez Interpretating Date/Time 09/16/2016 21:44:10
== END 2016-09-16 18:41 | disposition home or self-care (01) ==
LOC: NEPC 15:52
DX: R10.11 Right upper quadrant pain (principal); R11.2 Nausea with vomiting, unspecified; I10 Essential (primary) hypertension; F17.220 Nicotine dependence, chewing tobacco, uncomplicated
CPT/HCPCS: 76705; 80053; 81001; 83690; 85025; 85610; 85730; 93005; 96374; 96375; 99285; J1170; J2405; J7030